=== PATIENT | male | born 1960 | race Hispanic/Latino ===

== ENCOUNTER 2018-01-04 00:53 | Emergency (ER) | payer SELFPAY ==
[~2018-01-04] VITALS: Ht 160 cm; Wt 81.8 kg
[~2018-01-04 00:53] MED LIST: AMOXICILLIN875 MG OR; NO CURRENT MEDS; ULTRAM50 MG OR
[2018-01-04 01:12] LABS: IMMATURE GRANULOCYTES 0.5 % (0.0-1.0); MEAN CORPUSCULAR HGB 31.1 pG CALC (26.0-32.0); MEAN CORPUSCULAR HGB CONC 33.3 g/L CALC (32.0-36.0); NEUT# 7.3 thou/uL (1.82-7.42); RED BLOOD COUNT 2.22 mill/uL (4.70-6.10); RED CELL DISTRI WIDTH 14.4 % (11.5-15.5)
[2018-01-04 01:34] LABS: ALKALINE PHOSPHATASE 61 u/l (38-126); BILIRUBIN, TOTAL 0.6 mg/dL (0.0-1.4); BUN 28 mg/dL (9-20); BUN/CREATININE RATIO 38 (12-20 (CALC)); CHLORIDE 114 mmol/l (95-108); CREATININE 0.8 mg/dL (0.7-1.3); GFR > 60 ML/MIN (>=60 (CALC)); GFR FOR AFR.AMER. > 60 ML/MIN (>=60 (CALC)); POTASSIUM 2.9 mmol/l (3.5-5.1); SGOT/AST 37 u/l (17-59); SGPT/ALT 35 u/l (21-72); SODIUM 145 mmol/l (137-146)
[2018-01-04 01:36] LABS: ACT PARTIAL THROMBO TIME 23.5 SECONDS (20.0-32.5); INTERNATIONAL NORMALIZED RATIO 1.4 RATIO (0.7-1.3)
[2018-01-04 01:38] LABS: ALBUMIN 1.9 g/dL (3.2-5.0); ANION GAP 16 (6-22 (CALC)); CARBON DIOXIDE 18 mmol/l (22-30); TOTAL PROTEIN 4.7 g/dL (6.3-8.2)
[2018-01-04 01:43] LABS: PROTHROMBIN TIME 15.2 SECONDS (9.0-12.5)
[2018-01-04 01:44] LABS: HEMATOCRIT 20.7 % (39.0-50.0); HEMOGLOBIN 6.9 g/dl (14.0-18.0); MEAN CELL VOLUME 93.2 fL CALC (80.0-100.0)
[2018-01-04 02:40] VITALS: BP 106/53
== END 2018-01-04 02:00 | disposition short-term general hospital (02) | DRG 379 ==
LOC: ED 00:53
PROVIDERS: Emergency Medicine
PROC: 30233N1 Transfusion of Nonautologous Red Blood Cells into Peripheral Vein, Percutaneous Approach (ICD-10-PCS; principal; 2018-01-04)
PROC: 30233N1 Transfusion of Nonautologous Red Blood Cells into Peripheral Vein, Percutaneous Approach (ICD-10-PCS; 2018-01-04)
DX: K92.2 Gastrointestinal hemorrhage, unspecified (principal); R10.9 Unspecified abdominal pain; R94.31 Abnormal electrocardiogram [ECG] [EKG]; Z79.1 Long term (current) use of non-steroidal anti-inflammatories (NSAID)
CPT/HCPCS: P9016; S0164

== ENCOUNTER 2018-04-04 10:02 | Inpatient (IN) | payer OTHER ==
[~2018-04-04] VITALS: Ht 160 cm; Wt 81.0 kg
[2018-04-04 10:38] LABS: IMMATURE GRANULOCYTES 0.2 % (0.0-1.0); NEUT# 14.9 thou/uL (1.82-7.42); RED BLOOD COUNT 4.79 mill/uL (4.70-6.10); RED CELL DISTRI WIDTH 22.2 % (11.5-15.5)
[2018-04-04] MEDS ORDERED: SPIRONOLACT25 MG PO (10:52)
[2018-04-04] MEDS ORDERED: GENERLAC10 GM/15 M PO (10:52)
[2018-04-04] MEDS ORDERED: FUROSEMIDE40 MG PO (10:53)
[2018-04-04 10:54] LABS: HEMATOCRIT 39.4 % (39.0-50.0); HEMOGLOBIN 13.4 g/dl (14.0-18.0); MEAN CELL VOLUME 82.3 fL CALC (80.0-100.0)
[2018-04-04] MEDS ORDERED: [UNRECOGNIZED DRUG - CODE] PO (10:55)
[2018-04-04 10:58] LABS: BILIRUBIN, TOTAL 1.7 mg/dL (0.0-1.4); BUN 16 mg/dL (9-20); BUN/CREATININE RATIO 22 (12-20 (CALC)); CARBON DIOXIDE 17 mmol/l (22-30); CHLORIDE 106 mmol/l (95-108); CREATININE 0.7 mg/dL (0.7-1.3); GFR > 60 ML/MIN (>=60 (CALC)); GFR FOR AFR.AMER. > 60 ML/MIN (>=60 (CALC)); SGPT/ALT 123 u/l (21-72); SODIUM 139 mmol/l (137-146)
[2018-04-04 11:01] LABS: ALKALINE PHOSPHATASE 229 u/l (38-126); ANION GAP 20 (6-22 (CALC)); POTASSIUM 3.9 mmol/l (3.5-5.1); SGOT/AST 151 u/l (17-59); TOTAL PROTEIN 9.8 g/dL (6.3-8.2)
[2018-04-04 11:10] LABS: LIPASE 9774 u/l (23-300)
[2018-04-04 18:30] VITALS: BP 116/75
[2018-04-04 19:14] LABS: URINE BILIRUBIN - DIPSTICK NEGATIVE (NEGATIVE); URINE BLOOD DIPSTICK NEGATIVE (NEGATIVE); URINE COLOR YELLOW; URINE GLUCOSE - DIPSTICK 100 mg/dL (NEGATIVE); URINE KETONE NEGATIVE (NEGATIVE); URINE LEUK ESTERASE NEGATIVE (NEGATIVE); URINE NITRITE - DIPSTICK NEGATIVE (Negative); URINE PH 5.5 (4.5-8.0); URINE PROTEIN - DIPSTICK NEGATIVE (NEG-TRACE); URINE SPECIFIC GRAVITY <=1.005
[2018-04-04 19:30] LABS: URINE CLARITY CLEAR
[2018-04-05 04:35] VITALS: BP 100/60
[2018-04-05 05:28] LABS: ALKALINE PHOSPHATASE 148 u/l (38-126); AMYLASE 535 u/l (30-110); BILIRUBIN, TOTAL 1.4 mg/dL (0.0-1.4); BUN 20 mg/dL (9-20); BUN/CREATININE RATIO 25 (12-20 (CALC)); CARBON DIOXIDE 21 mmol/l (22-30); CHLORIDE 109 mmol/l (95-108); CREATININE 0.8 mg/dL (0.7-1.3); GFR > 60 ML/MIN (>=60 (CALC)); GFR FOR AFR.AMER. > 60 ML/MIN (>=60 (CALC)); HEMATOCRIT 37.8 % (39.0-50.0); HEMOGLOBIN 12.3 g/dl (14.0-18.0); IMMATURE GRANULOCYTES 0.4 % (0.0-1.0); MAGNESIUM 1.8 mg/dL (1.6-2.3); MEAN CELL VOLUME 86.1 fL CALC (80.0-100.0); MEAN CORPUSCULAR HGB CONC 32.5 g/L CALC (32.0-36.0); NEUT# 7.85 thou/uL (1.82-7.42); RED BLOOD COUNT 4.39 mill/uL (4.70-6.10); RED CELL DISTRI WIDTH 23.3 % (11.5-15.5); SGOT/AST 92 u/l (17-59); SGPT/ALT 99 u/l (21-72); SODIUM 141 mmol/l (137-146); TOTAL PROTEIN 8.2 g/dL (6.3-8.2)
[2018-04-05 05:37] LABS: ANION GAP 16 (6-22 (CALC)); LIPASE 4698 u/l (23-300)
[2018-04-05 05:38] LABS: ALBUMIN 3.1 g/dL (3.2-5.0); POTASSIUM 4.7 mmol/l (3.5-5.1)
[2018-04-05 07:27] VITALS: BP 93/54
[2018-04-05 09:14] VITALS: BP 104/65
[2018-04-05 16:23] VITALS: BP 124/66
[2018-04-05 18:00] VITALS: BP 100/52
[2018-04-06 03:25] VITALS: BP 97/60
[2018-04-06 05:04] LABS: IMMATURE GRANULOCYTES 0.3 % (0.0-1.0); MEAN CELL VOLUME 84.5 fL CALC (80.0-100.0); MEAN CORPUSCULAR HGB 28.1 pG CALC (26.0-32.0); MEAN CORPUSCULAR HGB CONC 33.2 g/L CALC (32.0-36.0); NEUT# 3.09 thou/uL (1.82-7.42); RED BLOOD COUNT 3.67 mill/uL (4.70-6.10); RED CELL DISTRI WIDTH 22.5 % (11.5-15.5)
[2018-04-06 05:13] LABS: CHOLESTEROL HDL RATIO 2.9 (<4.4 (CALC))
[2018-04-06 05:15] LABS: ALBUMIN 2.5 g/dL (3.2-5.0); ALKALINE PHOSPHATASE 103 u/l (38-126); ANION GAP 14 (6-22 (CALC)); BILIRUBIN, TOTAL 0.9 mg/dL (0.0-1.4); BUN 17 mg/dL (9-20); BUN/CREATININE RATIO 26 (12-20 (CALC)); CARBON DIOXIDE 20 mmol/l (22-30); CHLORIDE 109 mmol/l (95-108); CREATININE 0.7 mg/dL (0.7-1.3); GFR > 60 ML/MIN (>=60 (CALC)); GFR FOR AFR.AMER. > 60 ML/MIN (>=60 (CALC)); MAGNESIUM 1.6 mg/dL (1.6-2.3); SGOT/AST 57 u/l (17-59); SGPT/ALT 72 u/l (21-72); SODIUM 139 mmol/l (137-146); TOTAL PROTEIN 6.8 g/dL (6.3-8.2)
[2018-04-06 05:18] LABS: POTASSIUM 3.7 mmol/l (3.5-5.1)
[2018-04-06 05:28] LABS: HEMOGLOBIN 10.3 g/dl (14.0-18.0)
[2018-04-06 07:45] VITALS: BP 112/60
[2018-04-06 16:15] VITALS: BP 123/65
[2018-04-06 19:43] VITALS: BP 98/60
[2018-04-07 06:01] LABS: HEMATOCRIT 32.5 % (39.0-50.0); HEMOGLOBIN 11.1 g/dl (14.0-18.0); IMMATURE GRANULOCYTES 0.4 % (0.0-1.0); MEAN CELL VOLUME 83.5 fL CALC (80.0-100.0); MEAN CORPUSCULAR HGB 28.5 pG CALC (26.0-32.0); MEAN CORPUSCULAR HGB CONC 34.2 g/L CALC (32.0-36.0); RED BLOOD COUNT 3.89 mill/uL (4.70-6.10)
[2018-04-07 06:14] LABS: ANION GAP 15 (6-22 (CALC)); BUN 12 mg/dL (9-20); BUN/CREATININE RATIO 20 (12-20 (CALC)); CARBON DIOXIDE 18 mmol/l (22-30); CHLORIDE 109 mmol/l (95-108); CREATININE 0.6 mg/dL (0.7-1.3); GFR > 60 ML/MIN (>=60 (CALC)); GFR FOR AFR.AMER. > 60 ML/MIN (>=60 (CALC)); MAGNESIUM 1.5 mg/dL (1.6-2.3); POTASSIUM 3.9 mmol/l (3.5-5.1); SODIUM 138 mmol/l (137-146)
[2018-04-07 07:47] VITALS: BP 106/63
[2018-04-07 16:50] VITALS: BP 135/83
[2018-04-07 19:30] VITALS: BP 109/73
[2018-04-08 04:55] VITALS: BP 127/79
[2018-04-08 05:17] LABS: HEMATOCRIT 34.1 % (39.0-50.0); HEMOGLOBIN 11.6 g/dl (14.0-18.0); IMMATURE GRANULOCYTES 0.5 % (0.0-1.0); MEAN CELL VOLUME 81.8 fL CALC (80.0-100.0); MEAN CORPUSCULAR HGB 27.8 pG CALC (26.0-32.0); NEUT# 2.71 thou/uL (1.82-7.42); RED BLOOD COUNT 4.17 mill/uL (4.70-6.10); RED CELL DISTRI WIDTH 21.3 % (11.5-15.5)
[2018-04-08 05:38] LABS: ALBUMIN 2.8 g/dL (3.2-5.0); ALKALINE PHOSPHATASE 149 u/l (38-126); ANION GAP 13 (6-22 (CALC)); BILIRUBIN, TOTAL 0.7 mg/dL (0.0-1.4); BUN 8 mg/dL (9-20); BUN/CREATININE RATIO 15 (12-20 (CALC)); CARBON DIOXIDE 18 mmol/l (22-30); CHLORIDE 108 mmol/l (95-108); CREATININE 0.6 mg/dL (0.7-1.3); GFR > 60 ML/MIN (>=60 (CALC)); GFR FOR AFR.AMER. > 60 ML/MIN (>=60 (CALC)); POTASSIUM 3.6 mmol/l (3.5-5.1); SGOT/AST 69 u/l (17-59); SGPT/ALT 69 u/l (21-72); SODIUM 135 mmol/l (137-146); TOTAL PROTEIN 7.4 g/dL (6.3-8.2)
[2018-04-08 10:04] VITALS: BP 104/62
[2018-04-08 15:33] VITALS: BP 109/65
[2018-04-08 19:35] VITALS: BP 114/75
[2018-04-09 04:42] VITALS: BP 120/73
[2018-04-09 05:32] LABS: HEMATOCRIT 32.6 % (39.0-50.0); HEMOGLOBIN 11.1 g/dl (14.0-18.0); IMMATURE GRANULOCYTES 0.4 % (0.0-1.0); MEAN CELL VOLUME 82.5 fL CALC (80.0-100.0); MEAN CORPUSCULAR HGB 28.1 pG CALC (26.0-32.0); NEUT# 2.84 thou/uL (1.82-7.42); RED BLOOD COUNT 3.95 mill/uL (4.70-6.10); RED CELL DISTRI WIDTH 21.2 % (11.5-15.5)
[2018-04-09 05:48] LABS: ALBUMIN 2.6 g/dL (3.2-5.0); ALKALINE PHOSPHATASE 144 u/l (38-126); ANION GAP 13 (6-22 (CALC)); BILIRUBIN, TOTAL 0.5 mg/dL (0.0-1.4); BUN 7 mg/dL (9-20); BUN/CREATININE RATIO 12 (12-20 (CALC)); CARBON DIOXIDE 21 mmol/l (22-30); CHLORIDE 109 mmol/l (95-108); CREATININE 0.6 mg/dL (0.7-1.3); GFR > 60 ML/MIN (>=60 (CALC)); GFR FOR AFR.AMER. > 60 ML/MIN (>=60 (CALC)); LIPASE 434 u/l (23-300); POTASSIUM 3.5 mmol/l (3.5-5.1); SGOT/AST 62 u/l (17-59); SGPT/ALT 65 u/l (21-72); SODIUM 140 mmol/l (137-146)
[2018-04-09 07:38] VITALS: BP 104/70
== END 2018-04-09 12:22 | disposition home or self-care (01) | DRG 439 ==
LOC: ED 10:02 → ED-I 14:30 → ED 14:56 → MS2 14:57
PROVIDERS: Emergency Medicine; Nurse Practitioner; Nurse Practitioner Family; ADMIT Internal Medicine; ATTEND Internal Medicine
DX: K85.90 Acute pancreatitis without necrosis or infection, unspecified (principal); D61.818 Other pancytopenia; I85.10 Secondary esophageal varices without bleeding; E11.9 Type 2 diabetes mellitus without complications; F10.21 Alcohol dependence, in remission; D64.9 Anemia, unspecified; K70.30 Alcoholic cirrhosis of liver without ascites
CPT/HCPCS: J3370; Q9967; S0164